=== PATIENT | male | born 1980 | race Caucasian/White ===

== ENCOUNTER 2022-01-03 12:02 | Emergency (ER) | payer MEDICAID ==
[~2022-01-03] VITALS: Ht 165.1 cm; Wt 81.8 kg
[2022-01-03 16:35] VITALS: BP 129/72
[2022-01-03] MEDS ORDERED: BACITRACIN 0.9 GM PACKET OINTMENT TP ONE (18:00)
[2022-01-03] MEDS ORDERED: PERTUSS(ACELL),DIPH,TET VAC/PF 0.5 ML SYRINGE IM. ONE (18:00)
[2022-01-03] MEDS ORDERED: IBUPROFEN 600 MG TABLET PO ONE (18:00)
[2022-01-03] MEDS ORDERED: IBUP-2070 PO (18:29)
[2022-01-03] MEDS ORDERED: BACI28OI29 TP (18:31)
== END 2022-01-03 18:44 | disposition home or self-care (01) ==
LOC: EMS 12:02
DX: S40.812A Abrasion of left upper arm, initial encounter (principal); V29.9XXA Motorcycle rider (driver) (passenger) injured in unspecified traffic accident, initial encounter; Y93.89 Activity, other specified; Y92.89 Other specified places as the place of occurrence of the external cause; Y99.8 Other external cause status
CPT/HCPCS: 90471; 90715; 99283

== ENCOUNTER 2022-03-07 20:43 | Emergency (ER) | payer MEDICAID ==
[~2022-03-07] VITALS: Ht 172.7 cm; Wt 90.9 kg
[~2022-03-07 20:43] MED LIST: BACI28OI29 TP; IBUP-2070 PO
[2022-03-07 20:45] VITALS: BP 153/94
[2022-03-07] MEDS ORDERED: PENI500T2 PO (21:59)
[2022-03-07] MEDS ORDERED: KETOROLAC TROMETHAMINE 30 MG/ML VIAL IM ONE (22:00)
[2022-03-07] MEDS ORDERED: IBUP-2070 PO (22:00)
[2022-03-07] MEDS ORDERED: HYDR-4723 PO (22:01)
== END 2022-03-07 22:13 | disposition home or self-care (01) ==
LOC: EMS 20:48
DX: K02.9 Dental caries, unspecified (principal); K08.89 Other specified disorders of teeth and supporting structures
CPT/HCPCS: 99283; 96372; J1885

== ENCOUNTER 2022-07-18 09:40 | Emergency (ER) | payer MEDICAID, SELFPAY ==
[~2022-07-18] VITALS: Ht 157.5 cm; Wt 80.0 kg
[~2022-07-18 09:40] MED LIST changes: +HYDR-4723 PO; +IBUP-1492 PO; -IBUP-2070 PO; +PENI500T2 PO
[2022-07-18] MEDS ORDERED: LORazepam 1 MG TABLET PO ONE (10:30)
[2022-07-18 13:06] VITALS: BP 135/84
== END 2022-07-18 13:14 | disposition home or self-care (01) ==
LOC: EMS 09:42
DX: F41.9 Anxiety disorder, unspecified (principal); F12.90 Cannabis use, unspecified, uncomplicated; F15.90 Other stimulant use, unspecified, uncomplicated
CPT/HCPCS: 99283